=== PATIENT | female | born 1960 | race Caucasian/White ===

== ENCOUNTER → 2017-05-12 | Outpatient (CLI) | payer BC | END | disposition home or self-care (01) | LOC: MAMMO 08:30 | PROVIDERS: ATTEND General Practice | DX: Z12.31 Encounter for screening mammogram for malignant neoplasm of breast (principal) | CPT/HCPCS: 77063; G0202 ==

== ENCOUNTER → 2018-06-23 | Outpatient (CLI) | payer BC ==
--- NOTE | 2018-06-24 17:05 | MAM ---
EXAM DESCRIPTION: 3D Screening BILATERAL : Digital Mammography. CLINICAL HISTORY: 57 years Female SCREENING . No complaints. No personal history or family history of breast cancer. Childbirth. Postmenopausal x27 years. No HRT.. Lifetime risk of developing breast cancer (Tyrer-Cuzick model)(%): 6.6 COMPARISON: Bilateral screening digital breast tomosynthesis 05/12/2017. TECHNIQUE: Bilateral CC and MLO projection full-field images, Digital tomosynthesis mammographic technique. Bilateral digital 2-D full-field MLO images. CAD not utilized. FINDINGS: The breast parenchymal density pattern is: Scattered areas of fibroglandular density. No skin thickening or nipple retraction. Bilateral axillary lymph nodes. Bilateral solitary microcalcifications. No new focal, stellate mass or density, focal asymmetry , and no suspicious microcalcifications bilaterally. Stable mammograms compared to prior study. IMPRESSION: Benign exam. BIRAD CATEGORY: 2 BENIGN FINDINGS. RECOMMENDATIONS: FOLLOW UP: Routine digital bilateral screening, one year interval from June 2018. Written communication explaining the IMPRESSION and follow-up, will be mailed to the patient and referring health care provider. According to the [employer] [place] [employer], yearly mammograms are recommended starting at age 40 and continuing as long as a woman is in good health. Any breast change noted on a breast self-exam should be reported promptly to the patient's healthcare provider. Breast MRI is recommended for women with an approximately 20-25% or greater lifetime risk of breast cancer, including women with a strong family history of breast or ovarian cancer and women who have been treated for Hodgkin's disease. A negative mammographic report should not delay tissue diagnosis in patients with significant clinical history or physical findings. Extremely dense breast tissue limits the sensitivity of digital mammography. Electronically signed by: Bryan Granda MD 06/24/2018 5:04 PM CDT
== END ==
LOC: MAMMO 13:00
PROVIDERS: ATTEND Family Medicine
DX: Z12.31 Encounter for screening mammogram for malignant neoplasm of breast (principal)

== ENCOUNTER → 2018-08-20 | Outpatient (CLI) | payer BC ==
--- NOTE | 2018-08-20 13:35 | MRI ---
EXAM DESCRIPTION: MRI right knee CLINICAL HISTORY: Right knee pain and swelling. Chronic knee pain COMPARISON: None. TECHNIQUE: Multiplanar, multisequence MR images of the right knee FINDINGS: Lateral patellar positioning relative to the trochlea by about 12 mm. Lateral patellar tilt. TT TG interval 15 mm. Chronic lateral patellar tracking abnormality with grade 4 chondrosis over the entire lateral patella and trochlea. Bony remodeling with marrow edema along both sides the joint. Chronic synovitis with focal synovial thickening along the lateral patellofemoral joint line. Large joint effusion and mild diffuse villous synovitis as well Intraosseous cyst in the posterior medial tibia originating at the medial meniscal root attachment. No medial meniscal tear. Mild medial femorotibial chondrosis. A small region of cystic change in the anterior tibia at the root attachment. No chronic osteochondral lesion Blunting of the free edge mid body lateral meniscus. No other lateral meniscal tear. Lateral femorotibial chondrosis with thinning and irregularity mostly over the posterior lateral tibia. No full-thickness defect or subchondral marrow abnormality. A ganglion is present in the infrapatellar fat laterally anterior to the lateral meniscus. Multiloculated ganglion measures 2.3 x 1.3 x 0.8 cm ACL, PCL, MCL and fibular collateral ligaments are intact Biceps femoris, popliteus and iliotibial band tendons are intact. Patellar and quadriceps tendons and tendons of the posterior medial knee are intact IMPRESSION: Severe patellofemoral osteoarthritis laterally from chronic patellar tracking abnormality with focal hypertrophic synovial proliferation along the lateral joint line. Joint effusion and diffuse mild degenerative synovitis otherwise Mild femorotibial chondrosis. No meniscal tear Electronically signed by: Johnny Morales MD 08/20/2018 1:34 PM [facility]
== END ==
LOC: MRI 09:05
PROVIDERS: ATTEND Orthopaedic Surgery
DX: M25.561 Pain in right knee (principal); M17.11 Unilateral primary osteoarthritis, right knee; M94.8X6 Other specified disorders of cartilage, lower leg

== ENCOUNTER 2018-09-22 20:54 | Emergency (ER) | payer BC ==
[2018-09-22 21:09] VITALS: O2SAT 100
[2018-09-22] MEDS ORDERED: HYOSCYAMINE SULFATE 0.5 MG/ML VIAL IV ONE (21:16)
--- NOTE | 2018-09-22 21:20 | ED.PDOC ---
History of Present Illness - General Chief Complaint: Abdominal Pain Stated Complaint: constipation and abd pain Time Seen by Provider: 09/22/18 21:15 Information Source: patient - History of Present Illness Initial Comments: SHE UNDERWENT A RIGHT TOTAL KNEE REPLACEMENT AT [facility] ON SEPTEMBER [address] MCALLISTER. SHE HAD EEN DOING WELL UNTIL YESTERDAY THAT SHE NOTED SOME INTERMITTENT RIGHT SIDED ABDOMINAL PAIN. SHE IS ON HYDROCODONE AND VOICES THAT EVER SINCE THE SURGERY SHE HAS DEFECATED VERY LITTLE. ON MIRALAX AND PRUNE JUICE. Abdominal Pain Onset Location: RUQ, RLQ Pain Radiation: no radiation Quality: moderate, aching, cramping Timing/Duration: 7-24 hours Improving Factors: nothing Worsening Factors: nothing Associated Symptoms: other - CONSTIPATION Review of Systems - Review of Systems Constitutional: States: no symptoms reported EENTM: States: no symptoms reported Respiratory: States: no symptoms reported Cardiology: States: no symptoms reported Gastrointestinal/Abdominal: States: abdominal pain, constipation Genitourinary: States: no symptoms reported Musculoskeletal: States: no symptoms reported Skin: States: no symptoms reported Neurological: States: no symptoms reported Endocrine: States: no symptoms reported Past Medical History (General) - Patient Medical History Hx Hypertension: Yes - Vaccination History Hx Tetanus, Diphtheria Vaccination: Yes Hx Influenza Vaccination: No Hx Pneumococcal Vaccination: No - Social History Hx Alcohol Use: No - Female History Patient is a Female of Child Bearing Age (10 -59 yrs old): No Family Medical History - Family History Mother Family History: Unknown Physical Exam - Physical Exam General Appearance: Alert, Obvious distress, Well Developed, Well Groomed, Well Hydrated, Well Nourished Eyes, Ears, Nose, Throat Exam: PERRL/EOMI, normal ENT inspection Neck: non-tender, full range of motion, supple Respiratory: chest non-tender, lungs clear, normal breath sounds, no respiratory distress, no accessory muscle use Cardiovascular/Chest: normal peripheral pulses, regular rate, rhythm, no edema, no gallop, no JVD Gastrointestinal/Abdominal: normal bowel sounds, no organomegaly, no pulsatile mass, guarding, tenderness - ON THE RUQ AND RLQ, EXQUISITE TENDERNESS WITH GUARDING. Rectal Exam: deferred Back Exam: normal inspection Extremity: normal range of motion, non-tender Neurologic: no motor/sensory deficits, oriented x 3 Progress - Results/Orders Results/Orders: GOOD RESULTS AFTER THE SECOND SOAP SUDS ENEMA. Departure - Departure Clinical Impression: Constipation Time of Disposition: 23:19 Disposition: Discharge to Home or Self Care Condition: Good Departure Forms: ED Discharge - Pt. Copy, Patient Portal Self Enrollment Instructions: DI for Abdominal Pain-Adult Diet: resume usual diet Referrals: Nain Dobbins MD [Primary Care Provider] - 1-2 Weeks Prescriptions: Peg [id number] Bicarb-Sod Ch [Golytely] 1 asmita PO QPM #1 asmita Home Medications: Ambulatory Orders Peg [id number] Bicarb-Sod Ch [Golytely] 1 asmita PO QPM #1 asmita 09/22/18
--- NOTE | 2018-09-22 21:56 | RAD ---
EXAM DESCRIPTION: Abdomen Series CLINICAL HISTORY: ABDOMINAL PAIN COMPARISON: None FINDINGS: Frontal view of the chest and supine and upright images of the abdomen were submitted. There is atelectasis at the right lung base. There is moderate stool in the colon. Cardiac silhouette is within normal limits. There is no focal parenchymal or pleural disease. There is no free air in the abdomen. There is no evidence of bowel obstruction. IMPRESSION: Constipation. No large consolidation in the lungs. No significant pulmonary edema. Electronically signed by: Bryan Carl 09/22/2018 9:55 PM [employer]
[2018-09-22] MEDS ORDERED: MAGNESIUM CITRATE 300 ML BTTL PO ONE (23:23)
[2018-09-22 23:48] VITALS: BP 113/70; TEMP 99.8
== END 2018-09-22 23:42 | disposition home or self-care (01) ==
LOC: ER 20:54
DX: K59.00 Constipation, unspecified (principal); I10 Essential (primary) hypertension; Z96.651 Presence of right artificial knee joint

== ENCOUNTER 2019-05-19 20:33 | Emergency (ER) | payer BC ==
[2019-05-19 23:38] VITALS: BP 101/85
[2019-05-20 00:11] VITALS: TEMP 97.4; O2SAT 99
== END 2019-05-19 23:50 | disposition home or self-care (01) ==
LOC: ER 20:33
DX: F41.9 Anxiety disorder, unspecified (principal); I10 Essential (primary) hypertension; Z79.899 Other long term (current) drug therapy; Z88.5 Allergy status to narcotic agent

== ENCOUNTER → 2019-08-05 | Outpatient (CLI) | payer BC ==
--- NOTE | 2019-08-08 17:09 | MAM ---
EXAM DESCRIPTION: 3D Screening BILATERAL : Digital Mammography. CLINICAL HISTORY: 59 years Female SCREENING . No complaints. No personal or family history of breast cancer. Menarche age 14. Childbirth 819. Postmenopausal 25+ years. Currently on HRT. Lifetime risk of developing breast cancer (Tyrer-Cuzick model)(%): 5.7. COMPARISON: Bilateral screening digital breast tomosynthesis 23 June 2018 and 12 May 2017. TECHNIQUE: Bilateral CC and MLO projection full-field images, digital tomosynthesis mammographic technique. Bilateral digital 2-D full-field MLO images. CAD not available for tomosynthesis or 2-D images. FINDINGS: The breast parenchymal density pattern is: Scattered areas of fibroglandular density. No skin thickening or nipple retraction. Bilateral solitary microcalcifications. No new focal, stellate mass or density, focal asymmetry , and no suspicious microcalcifications bilaterally. Stable mammograms compared to prior study. IMPRESSION: Benign exam. BIRAD CATEGORY: 2 BENIGN FINDINGS. RECOMMENDATIONS: FOLLOW UP: Routine digital bilateral mammographic screening, one year interval from July 2019. Written communication explaining the IMPRESSION and follow-up, will be mailed to the patient and referring health care provider. According to the [employer], yearly mammograms are recommended starting at age 40 and continuing as long as a woman is in good health. Any breast change noted on a breast self-exam should be reported promptly to the patient's healthcare provider. Breast MRI is recommended for women with an approximately 20-25% or greater lifetime risk of breast cancer, including women with a strong family history of breast or ovarian cancer and women who have been treated for Hodgkin's disease. A negative mammographic report should not delay tissue diagnosis in patients with significant clinical history or physical findings. Extremely dense breast tissue limits the sensitivity of digital mammography. Electronically signed by: Bryan Granda MD 08/08/2019 5:08 PM [employer]
== END ==
LOC: MAMMO 09:30
PROVIDERS: ATTEND General Practice
DX: Z12.31 Encounter for screening mammogram for malignant neoplasm of breast (principal)

== ENCOUNTER 2020-03-29 07:07 | Emergency (ER) | payer BC, MEDICARE ==
[2020-03-29] MEDS ORDERED: SODIUM CHLORIDE 0.9% (FLUSH) 10 ML SYG IV PRN (07:18)
[2020-03-29] MEDS ORDERED: ONDANSETRON INJ 4 MG/2 ML VIAL IV ONE (07:19)
[2020-03-29] MEDS ORDERED: fentaNYL CITRATE INJ 50 MCG/ML AMP IV ONE (07:19)
[2020-03-29] MEDS ORDERED: diazePAM INJ 10 MG/2 ML SYG IV ONE (07:19)
[2020-03-29] MEDS ORDERED: SODIUM CHLORIDE 0.9% 1000ML 1,000 ML ONE (07:33)
--- NOTE | 2020-03-29 08:24 | ED.PDOC ---
History of Present Illness - General Chief Complaint: General Stated Complaint: L leg cramps/spasms/pain Time Seen by Provider: 03/29/20 07:18 Source: patient, RN notes reviewed, Vital Signs reviewed, family - Exam Limitations: no limitations - History of Present Illness Initial Comments: Patient is a 59-year-old white female who appears much older than her stated age who presents with complaints of left leg cramps and pain. The started last night, approximately 10 hours ago. The pain is sharp and stabbing in nature. Is severe in intensity. It is continuous but waxes and wanes. Nothing seems to make it better or worse. Timing/Duration: other - 10 hours Severity: severe Improving Factors: nothing Worsening Factors: nothing Associated Symptoms: denies symptoms Allergies/Adverse Reactions: Allergies Hydromorphone [From Dilaudid] Adverse Reaction (Verified 03/29/20 07:26) Home Medications: Ambulatory Orders Carvedilol 25 mg PO BID 05/19/19 Cyclobenzaprine HCl 5 mg PO Q6HRS MDD 20 05/19/19 Estradiol 2 mg PO DAILY 05/19/19 Gabapentin 600 mg PO TID 05/19/19 Tramadol HCl 50 mg PO Q8H PRN 05/19/19 Celecoxib 200 mg PO Q12H 03/29/20 Diazepam 5 mg PO Q8H PRN 03/29/20 Duloxetine HCl 60 mg PO BID 03/29/20 Paroxetine HCl 10 mg PO DAILY 03/29/20 Ropinirole Hydrochloride [Ropinirole HCl] 2 mg PO BID 03/29/20 tiZANidine [Zanaflex] 4 mg PO Q8H PRN 03/29/20 Review of Systems - Review of Systems Constitutional: States: see HPI. Denies: chills, fever, malaise, weakness EENTM: States: no symptoms reported. Denies: eye pain, blurred vision, double vision Respiratory: States: no symptoms reported. Denies: cough, short of breath, stridor, wheezing Cardiology: States: no symptoms reported. Denies: chest pain, palpitations, syncope Gastrointestinal/Abdominal: States: no symptoms reported. Denies: abdominal pain, diarrhea, nausea, vomiting Genitourinary: States: no symptoms reported Musculoskeletal: States: see HPI, muscle pain, muscle stiffness Skin: States: no symptoms reported. Denies: change in color, rash Neurological: States: see HPI, pre-existing deficit, tingling. Denies: headache, numbness Endocrine: States: no symptoms reported Hematologic/Lymphatic: States: no symptoms reported All other Systems: No Change from Baseline Past Medical History (General) - Patient Medical History Hx Stroke: No Hx Asthma: No Hx of COPD: No Hx Cardiac Disorders: No Hx Hypertension: Yes Hx Thyroid Disease: Yes Hx Diabetes: No Hx Cancer: No Surgical History: Hysterectomy, other - Vaccination History Hx Tetanus, Diphtheria Vaccination: No Hx Influenza Vaccination: No Hx Pneumococcal Vaccination: No - Social History Hx Tobacco Use: No Hx Alcohol Use: Yes Hx Substance Use: Yes - Marijuana Hx Substance Use Treatment: No Hx Depression: No - Female History Patient is a Female of Child Bearing Age (10 -59 yrs old): Yes Patient : No - Hyst Family Medical History - Family History Mother Family History: No Known Physical Exam - Physical Exam General Appearance: Alert, Anxious, Obvious distress, Well Developed, Well Groomed, Well Hydrated, Well Nourished Eye Exam: bilateral normal Ears, Nose, Throat: normal ENT inspection, normal pharynx Neck: non-tender, full range of motion, supple, normal inspection Respiratory: chest non-tender, lungs clear, normal breath sounds, no respiratory distress, no accessory muscle use Cardiovascular/Chest: normal peripheral pulses, regular rate, rhythm, no edema, no gallop, no JVD, no murmur Peripheral Pulses: radial,right: 2+, radial,left: 2+ Gastrointestinal/Abdominal: normal bowel sounds, non tender, soft, no organomegaly Back Exam: normal inspection, no CVA tenderness, no vertebral tenderness Extremity: normal range of motion, no pedal edema, no calf tenderness, other - Patient with tenderness to palpation of the quadriceps along with some intermittent muscle spasms. Neurologic: pulpwood cutter II-XII nml as tested, no motor/sensory deficits, alert, normal mood/affect, oriented x 3 Skin Exam: normal color, warm/dry Lymphatic: no adenopathy Progress - Progress Progress: Differential diagnosis: MS, lumbar radiculopathy, fibromyalgia, electrolyte disturbance among others. 03/29/20 08:26 Patient's pain is improved after IV fluids, muscle relaxers and pain medications. Plan on discharge home with follow-up with PCP and neurology. Of discussed this plan of care with the patient she voices understanding and agreement with the plan of care. August Guidry M.D. #[id number] 03/29/20 08:39 Long discussion with the patient and her regarding her condition and need for further follow-up and evaluation. Patient has been to a neurologist and has had an EMG/NCV x2. Additionally she has had MRIs of her neck and back. I suggested she probably need further evaluation for MRI of head and/or MS. Patient and her voiced understanding and thanked me for giving her some relief from her pain. Plan on discharge home at this time. - Results/Orders Results/Orders: 03/29/20 07:18 Sodium Chloride 0.9% (Flush) [Saline Flush Syringe] 10 ml IV PRN PRN 03/29/20 07:30 EKG STAT Laboratory Results - last 24 hr 03/29/20 03/29/20 03/29/20 07:15 07:15 07:15 WBC 7.8 RBC 4.49 Hgb 13.5 Hct 39.5 MCV 87.8 MCH 30.1 MCHC 34.3 RDW 14.4 Plt Count 260 MPV 9.0 Absolute Neuts (auto) 4.40 Absolute Lymphs (auto) 2.60 Absolute Monos (auto) 0.60 Absolute Eos (auto) 0.20 Absolute Basos (auto) 0.10 Neutrophils % 56.1 Lymphocytes % 33.4 Monocytes % 7.2 Eosinophils % 2.6 Basophils % 0.7 Sodium 138 Potassium 3.6 Chloride 102 Carbon Dioxide 26 Anion Gap 13.6 BUN 21 H Creatinine 0.83 BUN/Creatinine Ratio 25.3 H Random Glucose 111 H Serum Osmolality 279.3 Calcium 9.0 Total Bilirubin 0.3 Direct Bilirubin < 0.1 Indirect Bilirubin 0.2 AST 21 ALT 19 Alkaline Phosphatase 68 Serum Total Protein 7.2 Albumin 3.9 Lipase 25 Vital Signs 03/29/20 03/29/20 07:10 07:18 Temperature 98 F Pulse Rate [ 97 H 97 H Pulse ox] Respiratory 20 20 Rate Blood Pressure 124/85 [L arm] O2 Sat by Pulse 95 Oximetry Departure - Departure Clinical Impression: Leg cramps Time of Disposition: 08:43 Disposition: Discharge to Home or Self Care Condition: Good Departure Forms: ED Discharge - Pt. Copy, Patient Portal Self Enrollment Instructions: Nocturnal (Nighttime) Leg Cramps (DC) Activity: increase activity as tolerated Referrals: Nain Dobbins MD [Primary Care Provider] - 1-5 Days Home Medications: Ambulatory Orders Carvedilol 25 mg PO BID 05/19/19 Cyclobenzaprine HCl 5 mg PO Q6HRS MDD 05/19/19 Estradiol 2 mg PO DAILY 05/19/19 Gabapentin 600 mg PO TID 05/19/19 Tramadol HCl 50 mg PO Q8H PRN 05/19/19 Celecoxib 200 mg PO Q12H 03/29/20 Diazepam 5 mg PO Q8H PRN 03/29/20 Duloxetine HCl 60 mg PO BID 03/29/20 Paroxetine HCl 10 mg PO DAILY 03/29/20 Ropinirole Hydrochloride [Ropinirole HCl] 2 mg PO BID 03/29/20 tiZANidine [Zanaflex] 4 mg PO Q8H PRN 03/29/20
[2020-03-29 08:56] VITALS: BP 105/55; TEMP 97.5; O2SAT 98
== END 2020-03-29 08:50 | disposition home or self-care (01) ==
LOC: ER 07:07
DX: R25.2 Cramp and spasm (principal); M79.662 Pain in left lower leg; I10 Essential (primary) hypertension; Z79.899 Other long term (current) drug therapy
CPT/HCPCS: 36415; 80048; 80076; 83690; 85025; J2405; J3010; J3360; J7030

== ENCOUNTER 2020-05-05 16:23 | Emergency (ER) | payer MEDICARE ==
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
[2020-05-05] MEDS ORDERED: MORPHINE SULFATE INJ 10 MG/ML VIAL IM ONE (16:39)
[2020-05-05] MEDS ORDERED: IBUPROFEN 200 MG TAB PO ONE (16:39)
[2020-05-05] MEDS ORDERED: ONDANSETRON ODT 8 MG TAB SL ONE (16:40)
[2020-05-05] MEDS ORDERED: LIDOCAINE 1% 10 ML VIAL INJ ONE (17:02)
--- NOTE | 2020-05-05 17:04 | RAD ---
EXAM DESCRIPTION: Femur,Left CLINICAL HISTORY: 59 years Female injury COMPARISON: None TECHNIQUE: AP and lateral views of the left femur are obtained. FINDINGS: OSSEOUS: There is no evidence of acute fracture or osteolytic/osteoblastic lesions. There is no evidence of subluxation or dislocation. The joint spaces are preserved. Mild narrowing of the compartments of the knee with mild marginal osteophytosis is consistent with primary osteoarthritis. There is mild enthesopathy about the left greater trochanter and ischial tuberosity. There is no evidence of marginal erosive changes to suggest an inflammatory arthritis. SOFT TISSUE: There is no significant soft tissue swelling or mass. No evidence of significant soft tissue calcifications. No radiopaque foreign bodies. No evidence of hip joint or suprapatellar effusions. IMPRESSION: No acute osseous abnormalities. Remainder of findings as described above. Electronically signed by: Stephanie Kulkarni MD 05/05/2020 5:03 PM CDT
--- NOTE | 2020-05-05 17:06 | RAD ---
EXAM DESCRIPTION: Foot,Right 3 Views CLINICAL HISTORY: 59 years Female injury COMPARISON: None TECHNIQUE: AP, lateral and oblique views of the right foot are obtained. FINDINGS: OSSEOUS: There is no evidence of acute fracture or osteolytic/osteoblastic lesions. There is dorsal dislocation of the distal phalanx of the great toe relative to the proximal phalanx. The joint spaces are preserved. There is no evidence of degenerative osteophytosis or sclerosis. There is mild marginal osteophytosis in the first TMT joint and calcaneocuboid joint. The ankle mortise is symmetric with a smooth talar dome and no evidence of widening of the distal tibiofibular syndesmosis. SOFT TISSUES: There is no significant soft tissue swelling or mass. No evidence of significant soft tissue calcifications. No radiopaque foreign bodies. There is no evidence of an ankle joint effusion. IMPRESSION: Dorsal dislocation of the distal phalanx of the great toe relative to the proximal phalanx. Remainder of findings as described above. Electronically signed by: Stephanie Kulkarni MD 05/05/2020 5:04 PM CDT
[2020-05-05 17:07] VITALS: O2SAT 98
[2020-05-05] MEDS ORDERED: TETANUS-DIPHTHERIA TOXOIDS (TD 1 EA SYG IM ONE (17:38)
[2020-05-05] MEDS ORDERED: TETANUS,DIPHTHERIA,PERTUSSIS 1 EA SYG IM ONE (17:43)
--- NOTE | 2020-05-05 17:43 | RAD ---
EXAM: XR Right Toes, 2 or More Views CLINICAL HISTORY: The patient is 59 years old and is Female; post reduction TECHNIQUE: Three views of toes of the right foot. COMPARISON: May 05, 2020 4:26 PM. FINDINGS: Bones/joints: Great toe interphalangeal joint dislocation is reduced. No acute fracture. Soft tissues: Soft tissue swelling. No radiopaque foreign body. IMPRESSION: Great toe interphalangeal joint dislocation is reduced. Electronically signed by: Manda Proctor MD 05/05/2020 5:41 PM CDT
[2020-05-05 18:24] VITALS: BP 144/89; TEMP 97.4
== END 2020-05-05 17:55 | disposition home or self-care (01) ==
LOC: ER 16:23
DX: S93.104A Unspecified dislocation of right toe(s), initial encounter (principal); R25.2 Cramp and spasm; S90.411A Abrasion, right great toe, initial encounter; E07.9 Disorder of thyroid, unspecified; I10 Essential (primary) hypertension; X50.9XXA Other and unspecified overexertion or strenuous movements or postures, initial encounter; Z79.899 Other long term (current) drug therapy; Z88.5 Allergy status to narcotic agent; Y92.814 Boat as the place of occurrence of the external cause
CPT/HCPCS: 73551; 73630; 73660; 90471; 90715; J2270

== ENCOUNTER 2020-08-07 04:54 | Emergency (ER) | payer MEDICARE ==
[2020-08-07 05:10] VITALS: TEMP 97.2
[2020-08-07] MEDS ORDERED: diazePAM INJ 10 MG/2 ML SYG IV ONE ×2 (05:29→05:46)
--- NOTE | 2020-08-07 05:56 | ED.PDOC ---
History of Present Illness - General Chief Complaint: Back Pain or Injury Stated Complaint: lower back pain Time Seen by Provider: 08/07/20 05:12 Source: patient, RN notes reviewed, Vital Signs reviewed, family - , old records - from previous ED visits Exam Limitations: no limitations - History of Present Illness Initial Comments: Patient is a 60-year-old white female who appears older than her stated age who presents with complaints of back pain and uncontrollable involuntary jerking of her legs. Patient has been diagnosed with nocturnal myoclonus. She has been se eing a neurologist over in [place], Dr. Ames, and is to follow-up with him later this month. Patient awoke from sleep tonight with uncontrollable spasms and jerking. The pain in her back and legs is cramping in nature. It is also sharp and stabbing. It is severe in intensity. It is waxing and waning. There is no radiation of the pain. Timing/Duration: 4-6 hours, getting worse Severity: severe Improving Factors: nothing Worsening Factors: nothing Allergies/Adverse Reactions: Allergies Hydromorphone [From Dilaudid] Adverse Reaction (Verified 08/07/20 05:02) Home Medications: Ambulatory Orders Carvedilol 25 mg PO BID 05/19/19 Cyclobenzaprine HCl 5 mg PO Q6HRS MDD 20 05/19/19 Estradiol 2 mg PO DAILY 05/19/19 Gabapentin 600 mg PO TID 05/19/19 Tramadol HCl 50 mg PO Q8H PRN 05/19/19 Celecoxib 200 mg PO Q12H 03/29/20 Diazepam 5 mg PO Q8H PRN 03/29/20 Duloxetine HCl [Duloxetine Hydrochloride] 60 mg PO BID 03/29/20 Paroxetine HCl [Paroxetine Hydrochloride] 10 mg PO DAILY 03/29/20 Ropinirole Hydrochloride [Ropinirole HCl] 2 mg PO BID 03/29/20 tiZANidine [Zanaflex] 4 mg PO Q8H PRN 03/29/20 Lisinopril & Hydrochlorothiazi [Zestoretic 20-12.5 mg] 2 tab PO DAILY 08/07/20 Review of Systems - Review of Systems Constitutional: States: no symptoms reported, see HPI. Denies: chills, fever, malaise, weakness EENTM: States: no symptoms reported. Denies: eye pain, blurred vision, double vision Respiratory: States: no symptoms reported. Denies: cough, short of breath, stridor, wheezing Cardiology: States: no symptoms reported. Denies: chest pain, palpitations, syncope Gastrointestinal/Abdominal: States: no symptoms reported. Denies: abdominal pain, diarrhea, nausea, vomiting Genitourinary: States: no symptoms reported. Denies: dysuria, frequency Musculoskeletal: States: see HPI, back pain. Denies: joint pain, neck pain Neurological: States: see HPI, tremors. Denies: numbness, weakness Endocrine: States: no symptoms reported. Denies: increased hunger, increased thirst, increased urine Hematologic/Lymphatic: States: no symptoms reported. Denies: blood clots, easy bleeding All other Systems: Reviewed and Negative, No Change from Baseline Past Medical History (General) - Patient Medical History Hx Stroke: No Hx Asthma: No Hx of COPD: No Hx Cardiac Disorders: No Hx Hypertension: Yes Hx Thyroid Disease: Yes Hx Diabetes: No Hx Cancer: No Surgical History: Hysterectomy, other - Vaccination History Hx Tetanus, Diphtheria Vaccination: No Hx Influenza Vaccination: No Hx Pneumococcal Vaccination: No - Social History Hx Tobacco Use: No Hx Alcohol Use: Yes Hx Substance Use: Yes - Marijuana Hx Substance Use Treatment: No Hx Depression: No - Female History Patient : No - Hyst Family Medical History - Family History Mother Family History: No Known Physical Exam - Physical Exam General Appearance: Alert, Anxious, Obvious distress, Obese, Restless, Well Developed, Well Hydrated, Well Nourished Eye Exam: bilateral normal Ears, Nose, Throat: hearing grossly normal, normal ENT inspection, normal pharynx Neck: non-tender, full range of motion, supple, normal inspection Respiratory: chest non-tender, lungs clear, normal breath sounds, no respiratory distress, no accessory muscle use Cardiovascular/Chest: normal peripheral pulses, regular rate, rhythm, no edema, no gallop, no JVD, no murmur Peripheral Pulses: radial,right: 2+, radial,left: 2+ Gastrointestinal/Abdominal: normal bowel sounds, non tender, soft Back Exam: normal inspection, no CVA tenderness, no vertebral tenderness Extremity: normal range of motion, normal capillary refill, calf tenderness 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 08/07/20 06:48 Patient's labs are relatively unremarkable except a minimally depressed magnesiu m level of 1.7. I have recommended patient start taking [id number] magnesium tablets. Patient's pain is markedly improved and the cramping significantly reduced after fentanyl and Valium. Plan on discharge home with follow-up with her neurologist today. I discussed this plan of care with the patient and she voices understanding and agreement. August Guidry M.D. #[id number] - Results/Orders Results/Orders: Laboratory Results - last 24 hr 08/07/20 08/07/20 08/07/20 05:00 05:00 05:00 WBC 7.6 RBC 4.35 Hgb 13.3 Hct 37.5 MCV 86.0 MCH 30.5 MCHC 35.5 RDW 14.2 Plt Count 245 MPV 8.9 Absolute Neuts (auto) 3.50 Absolute Lymphs (auto) 3.30 Absolute Monos (auto) 0.60 Absolute Eos (auto) 0.20 Absolute Basos (auto) 0.00 Neutrophils % 45.6 Lymphocytes % 43.5 Monocytes % 7.7 Eosinophils % 2.8 Basophils % 0.4 Sodium 138 Potassium 3.4 L Chloride 99 L Carbon Dioxide 29 Anion Gap 13.4 BUN 22 H Creatinine 0.78 BUN/Creatinine Ratio 28.2 H Random Glucose 123 H Serum Osmolality 280.4 Calcium 8.5 Magnesium 1.7 L Total Bilirubin 0.2 AST 16 ALT 15 Alkaline Phosphatase 67 Serum Total Protein 6.7 Albumin 3.6 Globulin 3.1 Albumin/Globulin Ratio 1.2 Vital Signs 08/07/20 08/07/20 08/07/20 05:01 05:39 06:01 Temperature 97.2 F L Pulse Rate [ 83 84 left] Respiratory 18 20 20 Rate Blood Pressure 110/63 109/42 102/83 [left] O2 Sat by Pulse 98 97 99 Oximetry 08/07/20 06:40 Temperature Pulse Rate [ 76 left] Respiratory 20 Rate Blood Pressure 93/65 [left] O2 Sat by Pulse 97 Oximetry Departure - Departure Clinical Impression: Nocturnal myoclonus Leg pain Qualifiers: Laterality: bilateral Qualified Code(s): M79.604 - Pain in right leg; M79.605 - Pain in left leg Time of Disposition: 06:50 Disposition: Discharge to Home or Self Care Condition: Good Departure Forms: ED Discharge - Pt. Copy, Patient Portal Self Enrollment Instructions: DI for Low Back Pain, Nocturnal (Nighttime) Leg Cramps (DC) Diet: resume usual diet Activity: increase activity as tolerated Referrals: Nain Dobbins MD [Primary Care Provider] - 1-2 Days Home Medications: Ambulatory Orders Carvedilol 25 mg PO BID 05/19/19 Cyclobenzaprine HCl 5 mg PO Q6HRS MDD 20 05/19/19 Estradiol 2 mg PO DAILY 05/19/19 Gabapentin 600 mg PO TID 05/19/19 Tramadol HCl 50 mg PO Q8H PRN 05/19/19 Celecoxib 200 mg PO Q12H 03/29/20 Diazepam 5 mg PO Q8H PRN 03/29/20 Duloxetine HCl [Duloxetine Hydrochloride] 60 mg PO BID 03/29/20 Paroxetine HCl [Paroxetine Hydrochloride] 10 mg PO DAILY 03/29/20 Ropinirole Hydrochloride [Ropinirole HCl] 2 mg PO BID 03/29/20 tiZANidine [Zanaflex] 4 mg PO Q8H PRN 03/29/20 Lisinopril & Hydrochlorothiazi [Zestoretic 20-12.5 mg] 2 tab PO DAILY 08/07/20
[2020-08-07] MEDS ORDERED: fentaNYL CITRATE INJ 50 MCG/ML 2 ML AMP IV ONE (06:02)
[2020-08-07 06:41] VITALS: BP 93/65; O2SAT 97
== END 2020-08-07 07:01 | disposition home or self-care (01) ==
LOC: ER 04:54
DX: G25.3 Myoclonus (principal); G47.62 Sleep related leg cramps; G47.61 Periodic limb movement disorder; G47.69 Other sleep related movement disorders; M54.5 Low back pain; I10 Essential (primary) hypertension; E07.9 Disorder of thyroid, unspecified; Z88.5 Allergy status to narcotic agent; Z79.899 Other long term (current) drug therapy
CPT/HCPCS: 80053; 83735; 85025; J3010; J3360

== ENCOUNTER 2020-11-03 21:38 | Emergency (ER) | payer MEDICARE ==
[2020-11-03] MEDS ORDERED: methylPREDNISolone SODIUM SUC 125 MG/2 ML VIAL IV ONE (21:39)
[2020-11-03] MEDS ORDERED: SODIUM CHLORIDE 0.9% (FLUSH) 10 ML SYG IV PRN ×2 (21:39→21:40)
[2020-11-03] MEDS ORDERED: SODIUM CHLORIDE 0.9% 1000ML 1,000 ML IVS PRN (21:40)
--- NOTE | 2020-11-03 21:46 | ED.PDOC ---
History of Present Illness - General Chief Complaint: Respiratory Problem Stated Complaint: Shortness of breath Time Seen by Provider: 11/03/20 21:39 Source: patient, RN notes reviewed, Vital Signs reviewed - History of Present Illness Initial Comments: This is a 60-year-old female presenting to emergency department with sudden onset shortness of breath onset 15 minutes ago. She states the dyspnea began after coughing episode while she was sitting on a couch at home. She reports cough and URI symptoms over the past 3 days. Has been is also had cold-like symptoms over the past several days as well. No known Covid contacts. She reports associated diffuse, generalized facial numbness. She denies any emotional trigger. No new medications. She denies any rash, abdominal pain, vomiting. No history of anaphylaxis. No new foods. She has history of panic attacks in the past. Allergies/Adverse Reactions: Allergies Hydromorphone [From Dilaudid] Adverse Reaction (Verified 11/03/20 22:01) Home Medications: Ambulatory Orders Carvedilol 25 mg PO BID 05/19/19 Cyclobenzaprine HCl 5 mg PO Q6HRS MDD 20 05/19/19 Estradiol 2 mg PO DAILY 05/19/19 Gabapentin 600 mg PO TID 05/19/19 Tramadol HCl 50 mg PO Q8H PRN 05/19/19 Celecoxib 200 mg PO Q12H 03/29/20 Diazepam 5 mg PO Q8H PRN 03/29/20 Duloxetine HCl [Duloxetine Hydrochloride] 60 mg PO BID 03/29/20 Paroxetine HCl [Paroxetine Hydrochloride] 10 mg PO DAILY 03/29/20 Ropinirole Hydrochloride [Ropinirole HCl] 2 mg PO BID 03/29/20 tiZANidine [Zanaflex] 4 mg PO Q8H PRN 03/29/20 Lisinopril & Hydrochlorothiazi [Zestoretic 20-12.5 mg] 2 tab PO DAILY 08/07/20 Albuterol Inhaler [Ventolin Hfa Inhaler] 1 - 2 puff INH Q4H PRN #1 inh 11/03/20 Benzonatate Perles [Tessalon Perles] 100 mg PO Q6H PRN #20 cap 11/03/20 cloNAZepam [KlonoPIN] 0.5 mg PO Q8H PRN 14 Days #15 tab 11/03/20 Review of Systems - Review of Systems Constitutional: Denies: chills, fever EENTM: Denies: ear pain, nose congestion, throat pain, mouth pain, mouth swelling Respiratory: States: short of breath. Denies: cough, orthopnea, wheezing Cardiology: Denies: chest pain, edema Gastrointestinal/Abdominal: Denies: abdominal pain, diarrhea, nausea, vomiting Genitourinary: Denies: dysuria, hematuria Musculoskeletal: Denies: joint pain, joint swelling, muscle pain, muscle stiffness Skin: Denies: lesions, rash Neurological: States: paresthesia, tingling. Denies: headache, numbness, weakness Endocrine: States: no symptoms reported Hematologic/Lymphatic: States: no symptoms reported. Denies: blood clots, easy bleeding Past Medical History (General) - Patient Medical History Hx Stroke: No Hx Asthma: No Hx of COPD: No Hx Cardiac Disorders: No Hx Hypertension: Yes Hx Thyroid Disease: Yes Hx Diabetes: No Hx Cancer: No - Vaccination History Hx Tetanus, Diphtheria Vaccination: No Hx Influenza Vaccination: No Hx Pneumococcal Vaccination: No - Social History Hx Tobacco Use: No Hx Alcohol Use: Yes Hx Substance Use: Yes - Marijuana Hx Substance Use Treatment: No Hx Depression: No - Female History Patient : No - Hyst Family Medical History - Family History Mother Family History: No Known Physical Exam - Physical Exam General Appearance: Alert, Anxious, Obese, Well Developed, Well Groomed, Well Hydrated, Well Nourished, Other - Hyperventilating Eyes, Ears, Nose, Throat Exam: PERRL/EOMI, normal ENT inspection, TMs normal, pharynx normal Neck: non-tender, full range of motion, supple, other - No stridor Respiratory: chest non-tender, lungs clear, normal breath sounds, other - Tachypneic and hyperventilating, very anxious Cardiovascular/Chest: normal peripheral pulses, no edema, tachycardia Peripheral Pulses: radial,right: 2+, radial,left: 2+ Gastrointestinal/Abdominal: non tender, soft Extremity: non-tender, normal inspection, no pedal edema Neurologic: no motor/sensory deficits, alert, normal mood/affect, oriented x 3 Skin Exam: normal color, warm/dry Progress - Progress Progress: 11/03/20 22:08 Rechecked. Heart rate down to the 90s. O2 sats remained 98 to 100%. She remains fairly anxious and slightly tachypneic. Lungs remain clear. 11/03/20 22:59 Rechecked. Breathing easy, feeling much better. Heart rate in the 80s, O2 sats 100% on room air. No wheezing. Discussed lab/x-ray findings as well as plan for discharge home. Recommended follow-up with Dr. Dobbins later this week for recheck. Strict warnings given to return to emergency room for worsening shortness of breath, fever, intractable vomiting, changes in taste/smell, or any other concerns DDx: Anxiety, panic attack, viral URI, COVID-19, pneumonia MDM: Patient presenting with dyspnea onset just prior to arrival after a coughing episode. She was hyperventilating and very anxious on arrival. She reported bilateral facial paresthesias associated with hyperventilation. She has had a cough/URI symptoms over the past several days. Her chest x-ray shows no clear infiltrates, Covid swab is negative. Suspect other viral URI. Labs reassuring. Patient feeling much better after Ativan. Suspect strong anxiety component with the cough. Nikos Friend DO [facility] #[id number] - Results/Orders Results/Orders: EKG reviewed personally by me at 2146. Normal sinus rhythm, rate of 98, normal axis, normal intervals, nonspecific ST and T wave changes Chest x-ray reviewed personally by me at 10:05 PM. Poor penetration, suspect patchy infiltrates bilateral perihilar areas, no pneumothorax EXAM: Chest,1 View CLINICAL INDICATION: Shortness of breath COMPARISON: 05/19/2019 FINDINGS: A single view of the chest was obtained. The heart size is normal. The pulmonary vascularity is unremarkable. The lungs are clear. There is no consolidation, infiltrate, pleural effusion, or pneumothorax. IMPRESSION: No evidence of active pulmonary disease. Electronically signed by: Jose J Oconnor MD 11/03/2020 10:10 PM Laboratory Tests 11/03/20 11/03/20 11/03/20 22:00 22:00 22:00 WBC 8.1 RBC 4.32 Hgb 13.0 Hct 37.0 MCV 85.8 MCH 30.1 MCHC 35.1 RDW 14.4 Plt Count 240 MPV 8.6 Absolute Neuts (auto) 4.30 Absolute Lymphs (auto) 3.10 Absolute Monos (auto) 0.40 Absolute Eos (auto) 0.20 Absolute Basos (auto) 0.10 Neutrophils % 53.0 Lymphocytes % 38.3 Monocytes % 5.5 Eosinophils % 2.3 Basophils % 0.9 Sodium 139 Potassium 3.3 L Chloride 105 Carbon Dioxide 22 Anion Gap 15.3 BUN 15 Creatinine 0.84 BUN/Creatinine Ratio 17.9 Random Glucose 125 H Serum Osmolality 279.8 Calcium 8.7 Total Bilirubin 0.5 AST 21 ALT 17 Alkaline Phosphatase 60 Troponin I < 0.02 B-Natriuretic Peptide < 15.0 Serum Total Protein 7.0 Albumin 3.5 Globulin 3.5 Albumin/Globulin Ratio 1.0 L Covid swab negative Departure - Departure Clinical Impression: Acute dyspnea, Anxiety attack, Upper respiratory infection Disposition: Discharge to Home or Self Care Condition: Good Departure Forms: ED Discharge - Pt. Copy, Patient Portal Self Enrollment Instructions: Viral Upper Respiratory Infection, Adult (DC), Anxiety, Adult (DC) Referrals: Nain Dobbins MD [Primary Care Provider] - 1-5 Days Prescriptions: cloNAZepam [KlonoPIN] 0.5 mg PO Q8H PRN 14 Days #15 tab PRN Reason: Anxiety Benzonatate Perles [Tessalon Perles] 100 mg PO Q6H PRN #20 cap PRN Reason: Cough Albuterol Inhaler [Ventolin Hfa Inhaler] 1 - 2 puff INH Q4H PRN #1 inh PRN Reason: Wheezing Home Medications: Ambulatory Orders Carvedilol 25 mg PO BID 05/19/19 Cyclobenzaprine HCl 5 mg PO Q6HRS MDD 20 05/19/19 Estradiol 2 mg PO DAILY 05/19/19 Gabapentin 600 mg PO TID 05/19/19 Tramadol HCl 50 mg PO Q8H PRN 05/19/19 Celecoxib 200 mg PO Q12H 03/29/20 Diazepam 5 mg PO Q8H PRN 03/29/20 Duloxetine HCl [Duloxetine Hydrochloride] 60 mg PO BID 03/29/20 Paroxetine HCl [Paroxetine Hydrochloride] 10 mg PO DAILY 03/29/20 Ropinirole Hydrochloride [Ropinirole HCl] 2 mg PO BID 03/29/20 tiZANidine [Zanaflex] 4 mg PO Q8H PRN 03/29/20 Lisinopril & Hydrochlorothiazi [Zestoretic 20-12.5 mg] 2 tab PO DAILY 08/07/20 Albuterol Inhaler [Ventolin Hfa Inhaler] 1 - 2 puff INH Q4H PRN #1 inh 11/03/20 Benzonatate Perles [Tessalon Perles] 100 mg PO Q6H PRN #20 cap 11/03/20 cloNAZepam [KlonoPIN] 0.5 mg PO Q8H PRN 14 Days #15 tab 11/03/20
[2020-11-03] MEDS ORDERED: MAGNESIUM SULFATE PREMIX 2GM 2 GM in PREMIX BAG 1 BAG IVPB ONE (22:06)
--- NOTE | 2020-11-03 22:12 | RAD ---
EXAM: Chest,1 View CLINICAL INDICATION: Shortness of breath COMPARISON: 05/19/2019 FINDINGS: A single view of the chest was obtained. The heart size is normal. The pulmonary vascularity is unremarkable. The lungs are clear. There is no consolidation, infiltrate, pleural effusion, or pneumothorax. IMPRESSION: No evidence of active pulmonary disease. Electronically signed by: Jose J Oconnor MD 11/03/2020 10:10 PM [facility]
[2020-11-03 23:29] VITALS: BP 139/72; TEMP 98.2; O2SAT 99
== END 2020-11-03 23:26 | disposition home or self-care (01) ==
LOC: ER 21:38
DX: J06.9 Acute upper respiratory infection, unspecified (principal); F41.9 Anxiety disorder, unspecified; E66.9 Obesity, unspecified; E07.9 Disorder of thyroid, unspecified; I10 Essential (primary) hypertension; Z20.822 Contact with and (suspected) exposure to COVID-19; Z79.899 Other long term (current) drug therapy; Z88.5 Allergy status to narcotic agent
CPT/HCPCS: 71045; 80053; 83880; 84484; 85025; 87635; 93005; J2060; J2930; J3475; J7030